=== PATIENT | female | born 1950 | race Caucasian/White ===

== ENCOUNTER → 2016-07-26 | Outpatient (CLI) | payer BC ==
--- NOTE | 2016-07-26 15:59 | PN ---
This is a 66-year-old female patient coming in for a compliancy check. She was diagnosed having moderate to severe obstructive sleep apnea with an AHI of 22. Currently she is on a CPAP pressure of 15. Upon inspection of her compliancy data, the patient is using her CPAP every night without any interruption. Her CPAP use for more than 4 hours is 100%. She is averaging 11 hours of CPAP use every night. Her leak factor is 24 L/minute and her AHI while on treatment is down to 0.7. She is utilizing a Mirage Quattro small-sized mask. She is doing well. No major hypersomnia or sleepiness. Her [place] score has dropped down to 3. She has lost around 9 pounds since her last evaluation. She is very happy with the ongoing treatment and she feels much more refreshed and alert during the day. BP is 169/95, pulse 78, respiration 16. Weight is 311. Temperature 98.6. Saturation 96% on room air. GENERAL APPEARANCE: Calm, comfortable. HEENT: Negative for JVD. There is no goiter or neck mass. The patient has significant crowding of posterior pharynx. LUNGS: Diminished breath sounds bilaterally. HEART: Sounds are regular rate and rhythm. Normal S1, S2. No S3. No S4. No murmurs. ABDOMEN: Soft, nontender. No organomegaly. EXTREMITIES: No edema. No cyanosis or clubbing. IMPRESSION: 1. Symptomatic obstructive sleep apnea, moderate to severe, with an AHI of 22, currently on CPAP pressure of 15 cm of water. 2. Morbid obesity; lost 9 pounds since her last evaluation. Current BMI is around 58. 3. Chronic hypersomnia, improved. 4. Bronchial asthma. PLAN: 1. The patient continues to have successful treatment with CPAP at a pressure of 15 cm of water. Continue the same pressure setting. 2. Encourage weight loss. 3. Her compliance data is very satisfactory, and the patient will see me back in a year's time; earlier if needed.
== END | disposition home or self-care (01) ==

== ENCOUNTER → 2017-08-18 | Outpatient (CLI) | payer MEDICARE ==
--- NOTE | 2017-08-21 11:36 | MM ---
Reason for exam: screening (asymptomatic). Last mammogram was performed 3 years ago. History: Patient is postmenopausal, history of other cancer, and is nulliparous. Benign excisional biopsy. Physical Findings: A clinical breast exam by your physician is recommended on an annual basis and results should be correlated with mammographic findings. MG 3D Screening Mammo W/Cad Bilateral CC, MLO, and XCCL view(s) were taken. Prior study comparison: August 27, 2014, right breast MG work up mamm w CAD RT. August 12, 2014, bilateral MG screening mammo w CAD. There are scattered fibroglandular densities. Stable benign calcifications. There is no discrete abnormality. No significant changes when compared with prior studies. ASSESSMENT: Benign, BI-RAD 2 RECOMMENDATION: Routine screening mammogram of both breasts in 1 year.
== END ==
LOC: RADMAMWWP 10:07
PROVIDERS: ATTEND Family Medicine
DX: Z12.31 Encounter for screening mammogram for malignant neoplasm of breast (principal)
CPT/HCPCS: 77063; 77067

== ENCOUNTER → 2017-12-19 | Outpatient (CLI) | payer MEDICARE ==
[~2017-12-19] MED LIST: REGADENOSON 0.4 MG/5 ML SYRINGE IV ONE
--- NOTE | 2017-12-19 11:15 | NM ---
EXAMINATION TYPE: NM stress lexiscan cardiolite DATE OF EXAM: 12/19/2017 COMPARISON: NONE HISTORY: Abnormal EKG TECHNIQUE: After the intravenous administration of 10.16 mCi Tc 99m Sestamibi - Cardiolite resting S PECT images acquired 65 minutes post injection. The patient received 0.4mg Lexiscan, 26.4 mCi Tc 99m Sestamibi - Stress images obtained [address] injection FINDINGS: Review of stress and rest SPECT images demonstrates no distinct perfusion abnormality. Gated analysi s shows normal wall motion with an estimated left ventricular ejection fraction of 35 %. IMPRESSION: 1. No diagnostic evidence of stress-induced reversible ischemia. 2. Ejection fraction of 35%.
--- NOTE | 2017-12-19 13:27 | EST ---
EXERCISE STRESS DATE OF SERVICE: 12/19/2017 AGE: 67 SEX: Female HT: 62" WT: 323 pounds PROTOCOL: Lexiscan Cardiolite STAGE: DURATION OF EXERCISE: HEART RATE REST: 81 BLOOD PRESSURE REST: 144/81 MAXIMUM HEART RATE ACHIEVED: 96 MAXIMUM BLOOD PRESSURE: 156/79 85% MPHR: 100% MPHR: METS: INDICATIONS: Palpitation, abnormal EKG. CLINICAL INFORMATION: Baseline rhythm is sinus mechanism, rate of 81, normal axis and intervals, poor R progression, nonspecific ST-T wave changes. Baseline blood pressure 144/81 mmHg. The patient received an injection of Lexiscan. Electrocardiograph monitoring revealed no evidence of diagnostic ischemic ST deviation. Cardiolite was injected per protocol. CONCLUSION: 1. Nondiagnostic electrocardiograph stress testing. 2. Nuclear images will be reported separately. MMODL / IJN: [id number] /
--- NOTE | 2017-12-19 13:33 | ECHOF ---
Referral Reason:R00.2 Palpitatons, R94.31 Abnormal EKG MEASUREMENTS -------- HEIGHT: 157.5 cm WEIGHT: 146.5 kg BP: IVSd: 1.6 cm (0.6 - 1.1) LVIDd: 4.8 cm (3.9 - 5.3) LVPWd: 1.5 cm (0.6 - 1.1) IVSs: 2.2 cm LVIDs: 2.7 cm LVPWs: 2.0 cm LAESV Index (A-L): 21.17 ml/m Ao Diam: 3.4 cm (2.0 - 3.7) AV Cusp: 1.8 cm (1.5 - 2.6) LA Diam: 2.9 cm (2.7 - 3.8) MV E Nahum: 0.86 m/s MV DecT: 254 ms MV A N[place]um: 0.96 m/s MV E/A Ratio: 0.89 RAP: 5.00 mmHg RVSP: 19.13 mmHg FINDINGS -------- Sinus rhythm. This was a technically difficult study with suboptimal views. The left ventricular size is normal. There is moderate concentric left ventricular hypertrophy. O verall left ventricular systolic function is normal with, an EF between 55 - 60 %. The right ventricle is normal in size and function. Normal LA size by volume 22+/-6 ml/m2. The right atrium is normal in size. 3ml of Lumason was utilized for enhancement of images. The aortic valve was not well visualized. The mitral valve leaflets are mildly thickened. Mild mitral regurgitation is present. Trace tricuspid regurgitation present. Right ventricular systolic pressure is normal at < 35 mmHg. There is no evidence of pulmonary hypertension. The pulmonic valve was not well visualized. There is no pulmonic regurgitation present. The aortic root size is normal. There is no pericardial effusion. CONCLUSIONS -------- 1. Sinus rhythm. 2. This was a technically difficult study with suboptimal views. 3. The left ventricular size is normal. 4. There is moderate concentric left ventricular hypertrophy. 5. Overall left ventricular systolic function is normal with, an EF between 55 - 60 %. 6. Normal LA size by volume 22+/-6 ml/m2. 7. 3ml of Lumason was utilized for enhancement of images. 8. The aortic valve was not well visualized. 9. The mitral valve leaflets are mildly thickened. 10. Mild mitral regurgitation is present. 11. Trace tricuspid regurgitation present. 12. Right ventricular systolic pressure is normal at < 35 mmHg. 13. The pulmonic valve was not well visualized. 14. There is no pulmonic regurgitation present. 15. The aortic root size is normal. 16. There is no pericardial effusion. MAGNETIC PROSPECTOR: Zenon Villaseñor RDCS
== END | disposition home or self-care (01) ==
LOC: RADNMMAIN 07:46
PROVIDERS: ATTEND Family Medicine
DX: I34.0 Nonrheumatic mitral (valve) insufficiency (principal); I51.7 Cardiomegaly; Z88.2 Allergy status to sulfonamides; Z88.1 Allergy status to other antibiotic agents
CPT/HCPCS: 93017; 78452; C8929; A9500; J2785; Q9950; 93306

== ENCOUNTER → 2018-01-09 | Outpatient (CLI) | payer MEDICARE ==
--- NOTE | 2018-01-09 13:52 | PN ---
PROGRESS NOTE This patient is 67, coming in for routine followup regarding her sleep apnea. This is her annual check. She has moderate to severe disease with an AHI of 22. She is on CPAP at a pressure of 15 cm of water. She remains very compliant and she used her CPAP every night. She is using a Mirage Quattro small size full-face mask. Her CPAP use showed that the patient has been utilizing his CPAP on average of 10.8 hours per night. Compliance for more than 4 hours at 100%, leak factor is 24 L/minute. Her AHI while on treatment is down to 2.1. No hypersomnia or sleepiness during the day. At times, she is having morning headaches which probably is related to nocturnal hypoglycemia as the patient has been started on Januvia recently for borderline elevation of blood sugar. Alternatively, nocturnal oxygen desaturation cannot be completely ruled out. Otherwise, no other new complaints for now. She does not fall asleep during day-to-day activities. Her weight is up by another 15 pounds over the past 1 year. . REVIEW OF SYSTEMS: A 12-point review of system was done. Positive findings are mentioned above history of present illness. PHYSICAL EXAMINATION: BP is 143/74, pulse 71, respirations 16, temperature 98.2, height is 5, 2, weight is 326, and saturation 93% on room air. [place] score is 7, BMI is 59.6. GENERAL APPEARANCE: Calm, comfortable. Head is atraumatic, normocephalic. Neck is short, supple, crowding of posterior pharynx. No goiter or neck masses. LUNGS: Clear to auscultation. HEART: Sounds regular rate and rhythm. Normal S1, S2. No S3. No murmurs. ABDOMEN: Soft, nontender. No organomegaly. EXTREMITIES: No edema. No cyanosis or clubbing. IMPRESSION: 1. Symptomatic obstructive sleep apnea with an apnea-hypopnea index of 22, currently on CPAP pressure of 15. 2. Morbid obesity. Body mass index is 59.6, with a total of 15 pounds weight gain. 3. Chronic hypersomnia, improved, current [place] score is down to 7. 4. Chronic bronchial asthma. 5. Morning headaches. PLAN: 1. Advised taking late at night time to prevent any nocturnal hypoglycemia. 2. Check a nocturnal oxygen saturation analysis while the patient is on CPAP to make sure she is not having any desaturation that can contribute to morning headaches. 3. Refill her Mirage Quattro small size full-face mask. 4. Encourage weight loss. 5. See her back in a year's time, earlier if needed. EFRAIN / IJN: [id number] /
== END | disposition home or self-care (01) ==
LOC: SLEEP 10:34
PROVIDERS: ATTEND Internal Medicine Critical Care Medicine
DX: G47.33 Obstructive sleep apnea (adult) (pediatric) (principal); E66.01 Morbid (severe) obesity due to excess calories; J45.909 Unspecified asthma, uncomplicated; R51 Headache; Z68.43 Body mass index [BMI] 50.0-59.9, adult; Z99.89 Dependence on other enabling machines and devices

== ENCOUNTER → 2019-05-01 | Outpatient (CLI) | payer MEDICARE ==
--- NOTE | 2019-05-03 10:54 | MM ---
Reason for exam: screening (asymptomatic). Last mammogram was performed 1 year and 8 months ago. History: Patient is postmenopausal, history of other cancer, and is nulliparous. Benign excisional biopsy. Physical Findings: A clinical breast exam by your physician is recommended on an annual basis and results should be correlated with mammographic findings. MG 3D Screening Mammo W/Cad Bilateral CC, MLO, and XCCL view(s) were taken. Prior study comparison: August 18, 2017, bilateral MG 3d screening mammo w/cad. August 27, 2014, right breast MG work up mamm w CAD RT. There are scattered fibroglandular densities. Finding: There are typically benign coarse, regional calcifications in the right breast. No significant changes in finding since August 18, 2017 and August 27, 2014. ASSESSMENT: Benign, BI-RAD 2 RECOMMENDATION: Routine screening mammogram of both breasts in 1 year.
== END | disposition home or self-care (01) ==
LOC: RADMAMWWP 11:02
PROVIDERS: ATTEND Family Medicine
DX: Z12.31 Encounter for screening mammogram for malignant neoplasm of breast (principal)
CPT/HCPCS: 77063; 77067

== ENCOUNTER → 2019-08-20 | Outpatient (CLI) | payer MEDICARE ==
--- NOTE | 2019-08-20 16:24 | P.PN ---
Progress Note - Text Progress Note Date: 08/20/19 69-year-old female patient with known history of obstructive sleep apnea was coming in for a routine check regarding CARL. She has moderately severe disease with an AHI of 22 and she's been maintained on a CPAP pressure of 50 cm of water. She was using a Mirage Quattro small size fullface mask. She was very compliant to CPAP treatment at her last evaluation the office wasn't thousand 19. She remains quite compliant with her treatment. She is wearing her CPAP overnight. She has also problems chronic bronchial asthma and headaches.Today's evaluation, I did a compliant to check on this patient. I checked his CPAP unit. Based on a one-month compliancy, the patient has utilize the machine almost every night without any interruption. Her average usage is around 10.4 hours. She is going to bed around 9 PM. She has a Mirage Quatro full face mask. She is reporting a leak of 38 L per minute. She is to successfully treated with an AHI is down to 1.8 which is still considerably lower compared to her baseline AHI of 22. No snoring while on the treatment. I met needs to be replaced and I offered that airfit F20 fullface mask medium size. Her height is 5' 2, weight is 320, BMI 57.5, her temperature is 90.8, pulse is 77, respirations 16, and the BP is 161/74. The patient appeared well nourished and normally developed. Vital signs as documented. Head exam is unremarkable. No scleral icterus or corneal arcus noted. Neck is without jugular venous distension, thyromegaly, or carotid bruits. Carotid upstrokes are brisk bilaterally. Lungs are clear to auscultation and percussion. Cardiac exam reveals the PMI to be normally sized and situated. Rhythm is regular. First and second heart sounds normal. No murmurs, rubs or gallops. Abdominal exam reveals normal bowel sounds, no masses, no organomegaly and no aortic enlargement. Extremities are nonedematous and both femoral and pedal pulses are normal.Examination of the skin revealed no evidence of significant rashes, suspicious appearing nevi or other concerning lesions. Neurologically the patient is awake and alert and there is no focal neurological. Assessment 1 CARL with an AHI of 22. Patient is compliant to CPAP therapy and she remains on a pressure of 15 cm of water. 2 Obesity , with interval 6 pounds weight loss and current weight is down to 260 3 hypersomnia, improved 4 Chronic bronchial asthma currently inactive in stable Plan Continue CPAP therapy same level of pressure Offered airfit F20 fullface mask with a silent elbow Encourage further weight loss Treatment is successful for now We'll continue to follow.
== END | disposition home or self-care (01) ==
LOC: SLEEP 16:09
PROVIDERS: ATTEND Internal Medicine Critical Care Medicine
DX: G47.33 Obstructive sleep apnea (adult) (pediatric) (principal); E66.9 Obesity, unspecified; G47.10 Hypersomnia, unspecified; Z99.89 Dependence on other enabling machines and devices; Z68.43 Body mass index [BMI] 50.0-59.9, adult

== ENCOUNTER → 2020-08-18 | Outpatient (CLI) | payer MEDICARE ==
--- NOTE | 2020-08-18 13:37 | P.PN ---
Subjective Progress Note Date: 08/18/20 this is a follow-up appointment for this patient was being seen in the sleep center regarding her obstructive sleep apnea. She is a morbidly obese 70-year-old female patient with known history of obstructive sleep apnea with an AHI of 22. The patient continues to be on CPAP at a pressure of 15 cm of water and she is using a small sized Mirage Quatro full face mask. She is been extremely compliant. She is using her machine overnight. Based on his 30 day compliance data evaluation, the patient has utilize admission overnight without any interruption on an average of 10.7 hours per night. His CPAP use for more than 4 hours at 100%. Her leak is around 15 L per minute and her AHI while on treatment is down to 1.3. The patient is waking up refreshed and alert during the day. No somnolence. No sleepiness. No naps. No nocturnal chest pain. No nocturnal shortness of breath or heartburn. No cardiac arrhythmias. No CVA. She is known to have bronchial asthma and he since she was given a prednisone burst taper by her anesthesiologist. She is taking a combination of Advair and singular regarding her asthma. Rest of the medications remain unchanged. At times, she has still to wake up in the middle of the night for urination. Her weight is 21 pounds and her weight has been stable without a significant weight gain or weight loss over the past 1 year. Her current [place] score is at 13. Objective - Vital Signs Vital signs: the blood pressure is 146/73, pulse is 81, respirations 12, temperature is 97.9, saturations 98% on room air oxygen, height is 53 and weight is down 21 pounds and the patient's body mass index is 58.6. The patient's [place] score is at 13. Neck size is 21 inches. - Exam The patient appeared well nourished and normally developed. the patient is morbidly obeseVital signs as documented. Head exam is unremarkable. No scleral icterus or corneal arcus noted. Neck is without jugular venous distension, thyromegaly, or carotid bruits. Carotid upstrokes are brisk bilaterally. the patient has a Mallampati class IV with significant crowding of the posterior oropharynx.Lungs are clear to auscultation and percussion. Cardiac exam reveals the PMI to be normally sized and situated. Rhythm is regular. First and second heart sounds normal. No murmurs, rubs or gallops. Abdominal exam reveals normal bowel sounds, no masses, no organomegaly and no aortic enlargement. Extremities are nonedematous and both femoral and pedal pulses are normal.Examination of the skin revealed no evidence of significant rashes, suspicious appearing nevi or other concerning lesions.Neurologically, the patient is awake and alert and the patient does not have any focal neurological deficit. Cranial nerves are essentially intact. Assessment and Plan Plan: 1 CARL with an AHI of 22. Patient is compliant to CPAP therapy and she remains on a pressure of 15 cm of water.the patient was successfully treated over the past year and the patient continues to have adequate clinical response. She is waking unrefreshed and alert during the day. No major hypersomnia and sleepiness. Her weight has been stable. She is currently weighing around 321 p ounds. 2 Obesity , stable weight for now 3 hypersomnia, improved 4 Chronic bronchial asthma currently being treated for an acute asthma exacerbation with a combination of steroids and maintenance inhalers including combination of Advair and Singulair. 5 diabetes mellitus 6 hyperlipidemia 7 chronic anxiety/depression maintenance citalopram and bupropion Plan Continue CPAP therapy same level of pressure, currently on 15 cm of water. His CPAP machine was checked. Compliance he was checked. No need for any changes or adjustments on this evaluation Offered airfit F20 fullface mask in the past however the patient opted to go back to her small size Mirage Quatro full face mask. Despite her leeks, she still effectively being treated with CPAP therapy and her AHI is down to 1.3. As such, no need for any further adjustment. The patient does not want to changeher mask at this point in time. Encourage further weight loss optimize asthma Optimize sleep hygiene measures Treatment is successful for now We'll continue to follow.
== END | disposition home or self-care (01) ==
LOC: SLEEP 13:02
PROVIDERS: ATTEND Internal Medicine Critical Care Medicine
DX: G47.33 Obstructive sleep apnea (adult) (pediatric) (principal); E66.9 Obesity, unspecified; G47.10 Hypersomnia, unspecified; J45.909 Unspecified asthma, uncomplicated; E11.9 Type 2 diabetes mellitus without complications; E78.5 Hyperlipidemia, unspecified; F41.9 Anxiety disorder, unspecified; F32.9 Major depressive disorder, single episode, unspecified; Z99.89 Dependence on other enabling machines and devices; Z79.899 Other long term (current) drug therapy

== ENCOUNTER → 2020-12-07 | Outpatient (CLI) | payer MEDICARE | END | disposition home or self-care (01) | LOC: LABWHC1 12:56 | PROVIDERS: ATTEND Otolaryngology | DX: Z53.9 Procedure and treatment not carried out, unspecified reason (principal) | CPT/HCPCS: 36415 ==

== ENCOUNTER → 2021-06-14 | Outpatient (CLI) | payer MEDICARE ==
--- NOTE | 2021-06-14 10:32 | CT ---
EXAMINATION TYPE: CT chest wo con DATE OF EXAM: 06/14/2021 COMPARISON: Chest x-ray 06/01/2021 HISTORY: Asthma CT DLP: 1371.2 mGycm. Automated Exposure Control for Dose Reduction was Utilized. TECHNIQUE: CT scan of the thorax is performed without IV contrast. FINDINGS: LUNGS: The lungs are grossly clear, there is no concerning parenchymal mass or nodule identified. T here is no pleural effusion or pneumothorax seen. The tracheobronchial tree is patent. Groundglass c hanges seen scattered bilaterally most likely in the basis of atelectasis rather than pneumonitis. MEDIASTINUM: Lack of IV contrast is noted to limit evaluation for mediastinal and especially hilar ad enopathy. There are no definitive greater than 1 cm hilar or mediastinal lymph nodes. No cardiomega ly or pericardial effusion is seen. Annular calcifications noted. Atherosclerotic change of the aorti c arch. Small hiatal hernia noted. OTHER: Hypertrophic and degenerative changes of the spine. Atherosclerotic changes of the aorta. Uppe r abdominal structures demonstrate no acute process.. IMPRESSION: 1. Minimal subsegmental groundglass changes noted bilaterally more likely in the basis of atelectasis than pneumonitis correlate clinically
== END | disposition home or self-care (01) ==
LOC: RADCTMAIN 08:56
PROVIDERS: ATTEND Nurse Practitioner Adult Health
DX: J45.909 Unspecified asthma, uncomplicated (principal)
CPT/HCPCS: 71250

== ENCOUNTER → 2021-08-24 | Outpatient (CLI) | payer MEDICARE ==
--- NOTE | 2021-08-24 17:19 | PN ---
PROGRESS NOTE This 71-year-old female patient is coming for an annual check regarding obstructive sleep apnea. The patient is interested in updating her CPAP machine, as her current machine has exceeded its hours. She is doing well. She is on a pressure of 15 cm of water and her AHI at baseline is around 22. Based on a 30-day compliancy, she has been averaging around 9.8 hours of CPAP use per night. She is using the machine more than 4 hours 100% of the time with a leak of 41 L/minute. Her AHI is down to 0.5 while on treatment. No new complaints. is stable. Weight is also stable. She is currently weighing around 335 pounds. She continues to benefit from treatment. She is waking up refreshed and alert during the day. No other significant events over the past one year. PHYSICAL EXAMINATION: VITAL SIGNS: BP is 137/73, pulse 88, respirations 16, temperature 97.2, saturation 96% on room air. Height is 5 feet 2 inches, weight is 335. [place] Score is 9. BMI is 61.2. GENERAL APPEARANCE: Calm, comfortable. HEAD: Atraumatic, normocephalic. Obese. Neck is supple. No JVD. No goiter or neck masses. Mallampati class IV. LUNGS: Diminished; otherwise clear. Heart sounds are regular rate and rhythm. Normal S1, S2. No S3, S4. No murmurs. ABDOMEN: Soft, nontender. No organomegaly. EXTREMITIES: No edema. No cyanosis or clubbing. IMPRESSION: 1. Moderate to severe obstructive sleep apnea; AHI of 22, currently on CPAP pressure of 15. Treatment is successful. 2. Morbid obesity with a body mass index of 61.2. 3. Bronchial asthma. 4. Diabetes mellitus. 5. Hyperlipidemia. 6. Chronic anxiety/depression. PLAN: Treatment remains successful. I am going to offer the patient a new CPAP machine, knowing that her current machine has exceeded its hours and the motor has exceeded its life expectancy. Will provide her a newer-generation CPAP unit at a pressure of 15 cm of water with a C-flex of 3. Keep the same mask interface. Encourage weight loss. Optimize sleep hygiene measures. Treatment is successful for now. Will see her back in a year's time in followup, earlier if needed. If new machine is obtained, the patient will see me back in 30 to 90 days for another compliancy check. MMNIKOL / IJN: [id number] /
== END | disposition home or self-care (01) ==
LOC: SLEEP 13:38
PROVIDERS: ATTEND Internal Medicine Critical Care Medicine
DX: Z53.9 Procedure and treatment not carried out, unspecified reason (principal)

== ENCOUNTER → 2024-10-25 | Outpatient (CLI) | payer MEDICARE ==
[2024-10-25 07:39] LABS: African American GFR (CKD) 89 (>60 ml/min/1.73 sqM); Blood Urea Nitrogen 22 mg/dL (7-17); Non-African American GFR(CKD) 77 (>60 ml/min/1.73 sqM)
--- NOTE | 2024-10-27 18:43 | CT ---
EXAMINATION TYPE: CT chest w con DATE OF EXAM: 10/25/2024 8:12 AM COMPARISON: None. CLINICAL INDICATION: Female, 74 years old with history of R91.8 Lung nodule, LUNG NODULE TECHNIQUE: Axial images were obtained at 5 mm thick sections. Reconstructed images are reviewed on Dian[employer] computer in the coronal plane. Contrast used:100 ML mL of Isovue 300 with IV Contrast, (none if empty) Oral contrast used: (none if empty) CT DLP: 938.9 mGycm, Automated exposure control for dose reduction was used. FINDINGS: Portion of the thyroid visualized is normal. No suspicious lung nodules or focal infiltrates are present. No enlarged mediastinal or hilar adenopathy is evident. The ascending aorta diameter at the level o f the main pulmonary artery is 3.7 cm. The main pulmonary artery diameter at the bifurcation is 3.9 cm. No significant coronary artery calcifications. Limited CT sections are obtained through the upper abdomen. Abdomen is essentially unremarkable. IMPRESSION: 1. No acute pulmonary process. [facility], , 10/27/2024 6:40 PM
== END | disposition home or self-care (01) ==
LOC: RADCTMAIN 06:26
PROVIDERS: ATTEND Internal Medicine
DX: R91.8 Other nonspecific abnormal finding of lung field (principal)
CPT/HCPCS: 82565; 84520; 71260; 36415; Q9967